=== PATIENT | female | born 1955 | race Caucasian/White ===

== ENCOUNTER 2022-10-06 11:20 | Outpatient (CLI) | payer MEDICARE, BC | END 2022-10-06 11:21 | disposition home or self-care (01) | LOC: CSHLAB 11:20 | PROVIDERS: ATTEND Obstetrics & Gynecology | DX: Z01.818 Encounter for other preprocedural examination (principal); Z80.41 Family history of malignant neoplasm of ovary; Z80.3 Family history of malignant neoplasm of breast; N81.6 Rectocele | CPT/HCPCS: 80048; 85027; 86850; 86900; 86901; 93005; 93010 ==

== ENCOUNTER 2022-10-07 05:55 | Day surgery (SDC) | payer MEDICARE, BC ==
[2022-10-06 11:51] VITALS: BMI 21.7
[2022-10-06 12:20] LABS: Hemoglobin 12.1 g/dL (12.0-15.5); Mean Corpuscular HGB CONC 32.4 g/dL (32.0-36.0); Mean Corpuscular Hemoglobin 30.6 pg (27.0-33.0); Mean Corpuscular Volume 94.4 fl (81.6-98.3); Mean Platelet Volume 8.5 fl (7.4-10.4); Platelet Count 301 10x3/uL (150-450); RBC Distribution Width 13.2 % (11.5-14.5); Red Blood Cell (RBC) Count 3.95 10x6/uL (3.90-5.03); White Blood Cell (WBC) Count 5.1 10x3/uL (3.5-10.5)
[2022-10-06 13:20] LABS: Anion Gap 10 mmol/L (10-20); BUN (Urea Nitrogen) 12 mg/dL (9.8-20.1); Calc. Creatinine Clearance 0 mL/min (70-130); Calcium 9.1 mg/dL (7.8-10.44); Carbon Dioxide 27 mmol/L (23-31); Chloride 108 mmol/L (98-107); Estimated GFR 95; Glucose 98 mg/dL (80-115); Potassium 4.8 mmol/L (3.5-5.1); Sodium 140 mmol/L (136-145)
[2022-10-07] MEDS ORDERED: Gabapentin 300 MG CAP ONE (06:29)
[2022-10-07] MEDS ORDERED: Famotidine/PF 20 mg/2ml Vial ONE (06:30)
[2022-10-07] MEDS ORDERED: CeleCOXIB 100 MG CAP ONE (06:30)
[2022-10-07] MEDS ORDERED: Lidocaine 1% w/Epinephrine 1:200K 30 ML VIAL ONE (06:41)
[2022-10-07] MEDS ORDERED: Bupivacaine HCl 0.5%/Epinephrine 1:200,000/PF 30 ml Vial ONE (06:41)
[2022-10-07] MEDS ORDERED: Fentanyl 100 MCG/2 ML VIAL ONE ×2 (07:20→09:49)
[2022-10-07] MEDS ORDERED: Midazolam HCl 2 mg/2 ml Vial ONE (07:20)
[2022-10-07] MEDS ORDERED: Dexmedetomidine 200 MCG/2 ML VIAL ONE (07:20)
[2022-10-07] MEDS ORDERED: Dexamethasone 20 MG/5 ML VIAL ONE (07:22)
[2022-10-07] MEDS ORDERED: CEFAZOLIN 2 GM VIAL ONE (07:22)
[2022-10-07] MEDS ORDERED: PROPOFOL 40 ML ONE (07:22)
[2022-10-07] MEDS ORDERED: Ondansetron PF 4 MG/2 ML Vial ONE (07:23)
[2022-10-07] MEDS ORDERED: Rocuronium Bromide 10 MG/ML (10ML VIAL) ONE (07:23)
[2022-10-07] MEDS ORDERED: Glycopyrrolate 0.2 MG/ML 5 ML SYRINGE ONE (08:40)
[2022-10-07] MEDS ORDERED: Fentanyl 100 MCG/2 ML VIAL SLOW IVP PRN (09:14)
[2022-10-07] MEDS ORDERED: HYDROcodone/Acetaminophen 5/325 mg Tablet PO PRN (09:14)
[2022-10-07] MEDS ORDERED: diphenhydrAMINE 25 MG CAP PO PRN (09:14)
[2022-10-07] MEDS ORDERED: Ondansetron PF 4 MG/2 ML Vial IVP PRN (09:14)
[2022-10-07] MEDS ORDERED: Promethazine HCl 25 MG/ML VIAL IM PRN (09:14)
[2022-10-07] MEDS ORDERED: Simethicone Chewable 80 MG TAB PO PRN (09:14)
[2022-10-07] MEDS ORDERED: Bisacodyl 10 MG SUPP PR PRN (09:14)
[2022-10-07] MEDS ORDERED: clonazePAM 0.5 MG TAB PO PRN ×2 (09:19→10:48)
[2022-10-07] MEDS ORDERED: Ketorolac Tromethamine 30 MG/ML VIAL IVP SCH (12:00)
[2022-10-07] MEDS: HYDROcodone/Acetaminophen 5/325 mg Tablet PO PRN ×2 (13:15→23:12)
[2022-10-07] MEDS ORDERED: traZODone HCl 50 MG TAB PO SCH (21:00)
[2022-10-07] MEDS ORDERED: Melatonin 3 MG TAB PO SCH (21:00)
[2022-10-07] MEDS: Ketorolac Tromethamine 30 MG/ML VIAL IVP SCH (21:18)
[2022-10-07] MEDS: Docusate 100 MG CAP PO SCH (21:19)
[2022-10-08] MEDS: Ketorolac Tromethamine 30 MG/ML VIAL IVP SCH ×2 (03:43→09:23)
[2022-10-08 04:39] LABS: Hemoglobin 10.9 g/dL (12.0-15.5); Mean Corpuscular HGB CONC 32.6 g/dL (32.0-36.0); Mean Corpuscular Hemoglobin 30.8 pg (27.0-33.0); Mean Corpuscular Volume 94.4 fl (81.6-98.3); Mean Platelet Volume 8.5 fl (7.4-10.4); Platelet Count 263 10x3/uL (150-450); RBC Distribution Width 13.4 % (11.5-14.5); Red Blood Cell (RBC) Count 3.54 10x6/uL (3.90-5.03); White Blood Cell (WBC) Count 10.8 10x3/uL (3.5-10.5)
[2022-10-08 07:47] VITALS: BP 132/73; TEMP 98.1
[2022-10-08] MEDS ORDERED: Polyethylene Glycol 3350 17 GM Packet PO SCH (09:00)
[2022-10-08] MEDS ORDERED: Anastrozole 1 MG TAB PO SCH (09:00)
[2022-10-08] MEDS ORDERED: Bupropion 150 MG XL TAB PO SCH (09:00)
[2022-10-08] MEDS ORDERED: Fluticasone Propionate Nasal Spray 16 gm Bottle NASAL SCH (09:00)
[2022-10-08] MEDS ORDERED: Loratadine 10 MG TAB PO SCH (09:00)
[2022-10-08] MEDS ORDERED: Azelastine 137 MCG/Spray 30 ML NS SCH (09:00)
[2022-10-08] MEDS: Docusate 100 MG CAP PO SCH (09:23)
[2022-10-13] MEDS ORDERED: Ibuprofen 600 MG TAB PO SCH (06:00)
== END 2022-10-08 09:50 | disposition home or self-care (01) ==
LOC: CSHSDC 05:55 → CSHPED 10:29 → UNDOADMOB 10:29 → CSHSDC 10-08 09:50 → UNDODISOB 10-08 09:50
PROVIDERS: ATTEND Obstetrics & Gynecology
PROC: 0UT94ZZ Resection of Uterus, Percutaneous Endoscopic Approach (ICD-10-PCS; principal; 2022-10-07)
PROC: 0UT24ZZ Resection of Bilateral Ovaries, Percutaneous Endoscopic Approach (ICD-10-PCS; 2022-10-07)
PROC: 0UT74ZZ Resection of Bilateral Fallopian Tubes, Percutaneous Endoscopic Approach (ICD-10-PCS; 2022-10-07)
PROC: 0JQC3ZZ Repair Pelvic Region Subcutaneous Tissue and Fascia, Percutaneous Approach (ICD-10-PCS; 2022-10-07)
DX: N81.6 Rectocele (principal); R19.2 Visible peristalsis; N83.201 Unspecified ovarian cyst, right side; N83.202 Unspecified ovarian cyst, left side; F41.9 Anxiety disorder, unspecified; F32.A Depression, unspecified; J30.9 Allergic rhinitis, unspecified; I47.1 Supraventricular tachycardia; Z85.3 Personal history of malignant neoplasm of breast; Z80.41 Family history of malignant neoplasm of ovary; Z79.899 Other long term (current) drug therapy; Z17.0 Estrogen receptor positive status [ER+]
CPT/HCPCS: 36415; 80048; 85027; 86850; 86900; 86901; 88307; J1100; J1885; J2250; J2405; J2704; J3010; S0028